=== PATIENT | female | born 2000 | race Two or more races ===

== ENCOUNTER 2025-06-25 04:11 | Inpatient (IN) | payer OTHER ==
[~2025-06-25] VITALS: Ht 154.9 cm; Wt 64.0 kg
[2025-06-25] VITALS (8 sets, daily range): BP systolic 130–154; BP diastolic 64–93
[2025-06-25] MEDS ORDERED: ERYTHROMYCIN BASE OPHT 1GM EACH TUBE OP ONE (04:30)
[2025-06-25] MEDS ORDERED: RINGERS SOLUTION,LACTATED 10,000 ML IV SCH (04:30)
[2025-06-25] MEDS ORDERED: LIDOCAINE HCL 1% 10ML VIAL IJ ONE (05:00)
[2025-06-25] MEDS ORDERED: CHLORHEXIDINE GLUCONATE 120 ML BOTTLE TOP ONE (05:00)
[2025-06-25] MEDS ORDERED: OXYTOCIN 1,000 ML IV SCH (05:00)
[2025-06-25 05:24] LABS: BASO % 0.2 % (0.1-1.2); EOS # 0.03 (0.04-0.54); EOS % 0.3 % (0.7-7.0); LYMPH # 5.21 (1.18-3.74); LYMPH % 45.3 % (19.3-53.1); MEAN PLATELET VOLUME 12.80 fl (9.4-12.4); MONO # 0.89 (0.24-0.82); MONO % 7.7 % (4.7-12.5); NEUT # 5.29 (1.56-6.13); NEUT % 46.1 % (34.0-71.1); RED CELL DISTRIBUTION WIDTH 13.2 % (11.6-14.4)
[2025-06-25 05:35] LABS: INR < 0.93
[2025-06-25] MEDS ORDERED: PRENATAL TABLE1 EAC1 PO (05:37)
[2025-06-25 05:41] LABS: ALT/SGPT 166.0 U/L (12-78); AST/SGOT 119.0 U/L (15-37); BILIRUBIN TOTAL 0.51 mg/dL (0.3-1.2); BUN CREA RATIO 13.0 (7.0-25.0); CREATININE SERUM 0.92 mg/dL (0.55-1.02); GFR 73.23; GLOBULINA 4.5 G/DL (2.4-3.5); GLUCOSE FASTING 99.0 mg/dL (65-100); OSMOLALITY SERUM 277.0 MOSM/KG (275-295)
[2025-06-25] MEDS ORDERED: PNV,CALCIUM 72/IRON/FOLIC ACID 1 TAB TABLET PO SCH (09:00)
[2025-06-25 11:32] LABS: BASO % 0.1 % (0.1-1.2); EOS # 0.00 (0.04-0.54); EOS % 0.0 % (0.7-7.0); LYMPH # 1.88 (1.18-3.74); LYMPH % 14.1 % (19.3-53.1); MEAN PLATELET VOLUME 12.60 fl (9.4-12.4); MONO # 0.93 (0.24-0.82); MONO % 7.0 % (4.7-12.5); NEUT # 10.47 (1.56-6.13); NEUT % 78.4 % (34.0-71.1); RED CELL DISTRIBUTION WIDTH 13.0 % (11.6-14.4)
[2025-06-26 01:25] VITALS: BP 107/68
[2025-06-26 06:05] VITALS: BP 123/81
[2025-06-26 08:17] VITALS: BP 119/76
[2025-06-27 01:27] VITALS: BP 126/77
[2025-06-27 04:00] VITALS: BP 123/77
[2025-06-27 09:24] VITALS: BP 118/83
== END 2025-06-27 11:20 | disposition home or self-care (01) | DRG 776 ==
LOC: LDR 04:11 → OB/GYN 04:11
PROVIDERS: ADMIT Obstetrics & Gynecology; ATTEND Obstetrics & Gynecology
DX: Z39.0 Encounter for care and examination of mother immediately after delivery (principal); Z3A.38 38 weeks gestation of pregnancy